=== PATIENT | female | born 1960 | race Caucasian/White ===

== ENCOUNTER 2023-12-21 01:35 | Emergency (ER) | payer OTHER ==
[2023-12-21] MEDS ORDERED: KETOROLAC 30 MG/ML INJ ONE (02:06)
[2023-12-21] MEDS ORDERED: TRAMADOL HCL 50 MG TAB ONE (02:07)
[2023-12-21] MEDS ORDERED: ONDANSETRON 4 MG (ODT) TAB ONE (02:07)
--- NOTE | 2023-12-21 04:24 | ER ---
Nurse's Notes [facility] Name: Terese Fernando Age: 63 yrs Sex: Female : 1960 Arrival Date: 12/21/2023 Time: 01:35 Bed 18 Private MD: Diagnosis: Fracture of patella;Acute left knee contusion, acute left patella fracture Presentation: 12/20 01:43 Chief complaint: EMS states: mechanical fall. complains of bilateral knee pain . No LOC.ha1 01:43 Coronavirus screen:. Ebola Screen: No symptoms or risks identified at this time. ha1 Initial Sepsis Screen: Does the patient meet any 2 criteria? No. Patient's initial sepsis screen is negative. Does the patient have a suspected source of infection? No. Patient's initial sepsis screen is negative. Risk Assessment: Do you want to hurt yourself or someone else? Patient reports no desire to harm self or others. Onset of symptoms was December 21, 2023. 01:43 Method Of Arrival: EMS: [facility] ha1 01:43 Acuity: LLUVIA 4 ha1 Triage Assessment: :43 General: Appears uncomfortable, Behavior is cooperative. Pain: Aggravated by increased ha1 activity, repositioning, Unable to use pain scale. FLACC scale score is 9 out of 10. Neuro: Level of Consciousness is awake, alert, Oriented to person. Cardiovascular: Capillary refill < 3 seconds Patient's skin is warm and dry. Respiratory: Airway is patent Respiratory effort is even, unlabored, Respiratory pattern is regular, symmetrical. GI: Abdomen is round non-distended. : No signs and/or symptoms were reported regarding the genitourinary system. Derm: Skin is pink, warm \T\ dry. Musculoskeletal: Circulation, motion, and sensation intact. Reports pain in right leg, medial aspect of left knee and left knee. Historical: - Allergies: 01:51 No Known Allergies; ha1 - PMHx: :51 Hypertensive disorder; Dementia; ha1 - Immunization history:: Adult Immunizations Adult Immunizations not up to date. - Infectious Disease History:: Denies. - Social history:: Smoking status: Patient denies any tobacco usage or history of. - Family history:: not pertinent. Screenin:43 [facility] ED Fall Risk Assessment (Adult) History of falling in the last 3 months, ha1 including since admission Yes- single mechanical fall (1 pt) Confusion or Disorientation Yes (5 pts) Intoxicated or Sedated No (0 pts) Impaired Gait Yes (1 pt) Mobility Assist Device Used No (0 pt) Altered Elimination Yes (1 pt) Score/Fall Risk Level 3 or more points = High Risk Oriented to surroundings, Maintained a safe environment, Educated pt \T\ family on fall prevention, incl call for assistance when getting out of bed, Hourly rounding (assess needs \T\ fall precautionary measures) done. Abuse screen: Denies threats or abuse. Denies injuries from another. Nutritional screening: No deficits noted. Tuberculosis screening: No symptoms or risk factors identified. Assessment: 01:43 Reassessment: see triage assessment. ha1 02:40 Reassessment: Patient and/or family updated on plan of care and expected duration. Pain ha1 level reassessed. eyes closed. 02:40 Respiratory: Airway is patent Respiratory effort is even, unlabored, Respiratory ha1 pattern is regular, symmetrical. 03:30 Reassessment: Patient and/or family updated on plan of care and expected duration. Pain ha1 level reassessed. 04:30 Reassessment: Patient and/or family updated on plan of care and expected duration. Pain ha1 level reassessed. Vital Signs: 01:43 BP 121 / 70; Pulse 76; Resp 16 S; Temp 97.7(O); Pulse Ox 100% on R/A; Weight 77.11 kg; ha1 Height 5 ft. 4 in. ; 02:40 BP 116 / 73; Pulse 72; Resp 16 S; Pulse Ox 95% on R/A; ha1 01:43 Body Mass Index 29.18 (77.11 kg, 162.56 cm) ha1 Galo Coma Score: 04:27 Eye Response: spontaneous(4). Motor Response: obeys commands(6). Verbal Response: sp4 confused(4). Total: 14. ED Course: 01:43 Patient arrived in ED. ha1 01:43 Yulia Santacruz, RN is Primary Nurse. ha1 01:43 Patient has correct armband on for positive identification. Placed in gown. Bed in low ha1 position. Call light in reach. Side rails up X2. 01:43 Arm band placed on right wrist. ha1 01:51 Triage completed. ha1 01:54 Potepalov, Aureliano, MD is Attending Physician. sp4 02:49 Pelvis XRAY In Process Unspecified. EDMS 02:49 Knee Left 3 View XRAY In Process Unspecified. EDMS 04:00 Provided Education on: how to use a knee immobilizer and following up with orthopedist .ha1 04:00 Assisted with bedpan. Cleaned of incontinence. ha1 04:23 Junaid Beauchamp MD is Referral Physician. sp4 04:50 No provider procedures requiring assistance completed. ha1 04:50 Patient did not have IV access during this emergency room visit. ha1 04:50 Knee immobilizer applied on left knee. ha1 Administered Medications: 02:10 Drug: Ketorolac IM 60 mg IM once Route: IM; Site: right ventrogluteal; ha1 02:40 Follow up: Response: No adverse reaction; Marked relief of symptoms ha1 02:10 Drug: traMADol PO 100 mg PO once Route: PO; ha1 02:40 Follow up: Response: No adverse reaction; Marked relief of symptoms; RASS: Drowsy (-1) ha1 02:10 Drug: Ondansetron PO 4 mg PO once Route: PO; ha1 02:40 Follow up: Response: No adverse reaction ha1 Medication: 01:55 VIS not applicable for this client. ha1 Outcome: 04:24 Discharge ordered by . sp4 04:50 Discharged to home via wheelchair, ha1 04:50 Condition: stable 04:50 Discharge instructions given to patient, family, Instructed on discharge instructions, follow up and referral plans. medication usage, Demonstrated understanding of instructions, follow-up care, medications, Prescriptions given X 3, 04:53 Patient left the ED. ha1 Signatures: Dispatcher [employer] Yulia Whitten RN RN ha1 Aureliano Ervin MD MD sp4 Corrections: (The following items were deleted from the chart) 06:18 04:50 Knee immobilizer applied on left knee. ha1 ha1
--- NOTE | 2023-12-21 04:25 | EDPHYS ---
Physician Documentation [facility] Name: Terese Fernando Age: 63 yrs Sex: Female : 1960 Arrival Date: 12/21/2023 Time: 01:35 Bed 18 Private MD: ED Physician Aureliano Ervin HPI: 12/20 01:54 This 63 yrs old Female presents to ER via EMS with complaints of Gen complaint . sp4 04:27 This is a very pleasant 63-year-old female with history of dementia and history of sp4 owning with wandering throughout the house. Last night patient wandering throughout the house sustained a fall onto the left knee. Patient complains of moderate pain on the left knee. Full ROS not available secondary to dementia. . Historical: - Allergies: 01:51 No Known Allergies; ha1 - PMHx: 01:51 Hypertensive disorder; Dementia; ha1 - Immunization history:: Adult Immunizations Adult Immunizations not up to date. - Infectious Disease History:: Denies. - Social history:: Smoking status: Patient denies any tobacco usage or history of. - Family history:: not pertinent. ROS: 04:27 Constitutional: Negative for fever, chills, and weight loss, positive for fall and left sp4 knee pain 04:27 All other systems are negative, Exam: 04:27 Constitutional: This is a well developed, well nourished patient who is awake, alert, sp4 and in no acute distress. Signs of mild to moderate dementia cooperative with exam Head/Face: Normocephalic, atraumatic. Eyes: Pupils equal round and reactive to light, extra-ocular motions intact. Lids and lashes normal. Conjunctiva and sclera are not injected. Cornea within normal limits. Periorbital areas with no swelling, redness, or edema. ENT: Nares patent. No nasal discharge, no septal abnormalities noted. Tympanic membranes are normal and external auditory canals are clear. Oropharynx with no redness, swelling, or masses, exudates, or evidence of obstruction, uvula midline. Mucous membranes moist. Neck: Trachea midline, no thyromegaly or masses palpated, and no cervical lymphadenopathy. Supple, full range of motion without nuchal rigidity, or vertebral point tenderness. Chest/axilla: Normal chest wall appearance and motion. Nontender with no deformity. No lesions are appreciated. Cardiovascular: Regular rate and rhythm with a normal S1 and S2. No gallops, murmurs, or rubs. Normal PMI, no JVD. No pulse deficits. Respiratory: Lungs have equal breath sounds bilaterally, clear to auscultation and percussion. No rales, rhonchi or wheezes noted. No increased work of breathing, no retractions or nasal flaring. Abdomen/GI: Soft, with normal bowel sounds. No distension or tympany. No guarding or rebound. No evidence of tenderness throughout. Back: No spinal tenderness. No costovertebral tenderness. Skin: Warm, dry with normal turgor. Normal color with no rashes, no lesions, and no evidence of cellulitis. MS/ Extremity: Pulses equal, no cyanosis. Neurovascular intact. Full, normal range of motion. Positive left knee tenderness but preserved range of motion. No effusion no deformity. Neuro: Awake and alert, GCS 15, oriented to person only. Cranial nerves II-XII grossly intact. Motor strength 5/5 in all extremities. Sensory grossly intact. Psych: Awake, alert, with orientation to person only, Moderate dementia. Vital Signs: 01:43 BP 121 / 70; Pulse 76; Resp 16 S; Temp 97.7(O); Pulse Ox 100% on R/A; Weight 77.11 kg; ha1 Height 5 ft. 4 in. ; 02:40 BP 116 / 73; Pulse 72; Resp 16 S; Pulse Ox 95% on R/A; ha1 01:43 Body Mass Index 29.18 (77.11 kg, 162.56 cm) ha1 Galo Coma Score: 04:27 Eye Response: spontaneous(4). Motor Response: obeys commands(6). Verbal Response: sp4 confused(4). Total: 14. MDM: 02:01 Patient medically screened. sp4 04:18 ED course: EXAM: XR Left Knee, 3 Views CLINICAL HISTORY: left knee injury TECHNIQUE: sp4 Three views of the left knee. COMPARISON: No relevant prior studies available. FINDINGS: Bones/joints: Mild to moderate tricompartmental degenerative changes. Focal fragmentation along the inferior lateral aspect of the patella. No dislocation. Soft tissues: Unremarkable. Vasculature: Atherosclerotic disease. IMPRESSION: Focal fragmentation along the inferior lateral aspect of the patella. 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 Please correlate with point tenderness in the setting of an acute fracture. . ED course: EXAMINATION: XR PELVIS 1-2 VIEWS INDICATION: Female, 63 years old, fall TECHNIQUE: 1 view COMPARISON(S): None. FINDINGS: Soft tissue attenuation and beam underpenetration limit assessment. No obvious fracture. No evidence of dislocation. Degenerative change of the lumbosacral spine and sacroiliac joints. Vascular calcifications. IMPRESSION: No acute osseous finding of the pelvis within the exam limitation. Consider CT if there is persistent clinical concern.. 04:32 Differential Diagnosis Fracture, dislocation, sprain, soft tissue contusion . Data sp4 reviewed: vital signs, nurses notes, radiologic studies, plain films. ED course: There is questionable inferior patella fracture. Patient will be placed in a knee immobilizer and referred to Dr. Hancock with orthopedic surgery. . 12/20 02:01 Order name: Pelvis XRAY sp4 12/20 02:01 Order name: Knee Left 3 View XRAY sp4 12/20 04:18 Order name: Knee Immobilizer; Complete Time: 04:53 sp4 Administered Medications: 02:10 Drug: Ketorolac IM 60 mg IM once Route: IM; Site: right ventrogluteal; ha1 02:40 Follow up: Response: No adverse reaction; Marked relief of symptoms ha1 02:10 Drug: traMADol PO 100 mg PO once Route: PO; ha1 02:40 Follow up: Response: No adverse reaction; Marked relief of symptoms; RASS: Drowsy (-1) ha1 02:10 Drug: Ondansetron PO 4 mg PO once Route: PO; ha1 02:40 Follow up: Response: No adverse reaction ha1 Disposition Summary: 12/21/23 04:24 Discharge Ordered Problem: new sp4 Symptoms: have improved sp4 Condition: Stable sp4 Diagnosis - Fracture of patella sp4 - Acute left knee contusion, acute left patella fracture sp4 Followup: sp4 - With: Junaid Hancock MD - When: 1 - 2 days - Reason: Recheck today's complaints Discharge Instructions: - Discharge Summary Sheet sp4 - Patellar Fracture, Adult sp4 Forms: - Prescription Opioid Use sp4 Prescriptions: - Ibuprofen 800 mg Oral Tablet - take 1 tablet ORAL route every 8 hours As needed take with food; 30 tablet; sp4 Refills: 0, Product Selection Permitted - Tramadol 50 mg Oral tablet - take 1 tablet ORAL route every 8 hours as needed; 25 tablet; Refills: 0, sp4 Product Selection Permitted - methocarbamol 750 mg Oral tablet - take 2 tablets ORAL route every 8 hours for 2 days PRN pain and soreness; 60 sp4 tablet; Refills: 0, Product Selection Permitted Signatures: Dispatcher [employer] Yulia Javed RN RN ha1 Aureliano Ervin MD MD sp4 Corrections: (The following items were deleted from the chart) 02:01 02:01 Pelvis+[id number].[email or web address] ordered. EDMS EDMS
[2023-12-21 05:31] VITALS: BP 116/73; TEMP 97.7; O2SAT 95
--- NOTE | 2023-12-21 13:44 | RAD REPORT ---
EXAM DESCRIPTION: RAD - Pelvis - 12/21/2023 2:48 am CLINICAL HISTORY: Female, 63 years old, fall TECHNIQUE: 1 view COMPARISON: None. FINDINGS: Soft tissue attenuation and beam underpenetration limit assessment. No obvious fracture. N o evidence of dislocation. Degenerative change of the lumbosacral spine and sacroiliac joints. Vascul ar calcifications. IMPRESSION: No acute osseous finding of the pelvis within the exam limitation. Consider CT if there is persistent clinical concern. Electronically signed by: Azar Campos MD 12/21/2023 03:23 AM CDT Due to temporary technical issues with the PACS/Fluency reporting system, reports are being signed by the in house radiologist without review as a courtesy to ensure prompt reporting. The interpreting r adiologist is fully responsible for the content of the report.
--- NOTE | 2023-12-21 13:47 | RAD REPORT ---
EXAM DESCRIPTION: RAD - Knee Left 3 View - 12/21/2023 2:48 am CLINICAL HISTORY: Left knee injury TECHNIQUE: Three views of the left knee. COMPARISON: No relevant prior studies available. FINDINGS: Bones/joints: Mild to moderate tricompartmental degenerative changes. Focal fragmentatio n along the inferior lateral aspect of the patella. No dislocation. Soft tissues: Unremarkable. Vasculature: Atherosclerotic disease. IMPRESSION: Focal fragmentation along the inferior lateral aspect of the patella. This may be relate d to a bipartite patella. Please correlate with point tenderness in the setting of an acute fracture. Electronically signed by: Felicia Sanchez MD 12/21/2023 03:28 AM CDT Due to temporary technical issues with the PACS/Fluency reporting system, reports are being signed by the in house radiologist without review as a courtesy to ensure prompt reporting. The interpreting r adiologist is fully responsible for the content of the report.
== END 2023-12-21 04:53 | disposition home or self-care (01) ==
LOC: ER 01:35
DX: S82.092A Other fracture of left patella, initial encounter for closed fracture (principal); F03.90 Unspecified dementia, unspecified severity, without behavioral disturbance, psychotic disturbance, mood disturbance, and anxiety
CPT/HCPCS: 72170; 73562; 96372; 99284; Q0162